=== PATIENT | male | born 1965 | race African-American/Black ===

== ENCOUNTER → 2020-07-06 | Day surgery (SDC) | payer BC ==
[~2020-07-06] MED LIST: PROPOFOL 10 MG/ML (20ML) VIAL. IV ONE
--- NOTE | 2020-07-06 13:02 | PDOC1 ---
History and Physical Date of Admission Date of Admission DATE: 07/06/20 TIME: 12:56 Identification/Chief Complaint Chief Complaint Colon cancer screening. Source Source: Patient History of Present Illness History of Present Illness 55 y/o male presents for screening colonoscopy. No prior. Denies D, C, overt bleeding except after prostate biopsies. Wt/appetite OK. No N, V. GIFH negative. Denies heartburn, dysphagia, PUD, GB, liver or pancreatic history. Past Medical History Heme/Onc: Cancer (Prostate) Past Surgical History Past Surgical History: No pertinent history Family History Family History Negative for GI issues. Social History Smoke: No ALCOHOL: occassional Drugs: None Current Medications Current Medications Current Medications Propofol (Diprivan) 200 mg STK-MED ONCE IV ; Start 07/06/20 at 12:37; Stop 07/06/20 at 12:37; Status DC Allergies Allergies: Coded Allergies: No Known Drug Allergies (Unverified , 07/06/20) ROS Review of System Otherwise negative. Physical Exam General: Alert, Oriented X3, Cooperative, No acute distress HEENT: Atraumatic Lungs: Clear to auscultation Heart: S1S2, RRR, no gallops, no murmurs Abdomen: Normal bowel sounds, Soft, No tenderness, No hepatosplenomegaly, No masses Rectal Exam: deferred (to procedure) Extremities: No cyanosis, No edema Skin: No significant lesion Neuro: Normal speech, Strength at 5/5 X4 ext, Normal tone, Sensation intact, Cranial nerves 3-12 NL, Reflexes 2+ Psych/Mental Status: Mental status NL, Mood NL Vitals Vitals Vital Signs Date Time Temp Pulse Resp B/P (MAP) Pulse Ox O2 Delivery O2 Flow Rate FiO2 07/06/20 12:19 97.4 85 20 98 97.4 Labs Labs Laboratory Tests Test 07/06/20 12:30 SARS-CoV-2 Antigen (Rapid) Negative (NEGATIVE) Laboratory Tests Test 07/06/20 12:30 SARS-CoV-2 Antigen (Rapid) Negative (NEGATIVE) VTE Prophylaxis Ordered VTE Prophylaxis Devices: No VTE Pharmacological Prophylaxi: No Assessment/Plan Assessment/Plan IMP: Average risk for colon cancer, here for screening. PLAN: colonoscopy. DEYVI ASTORGA MD July 06, 2020 13:02
--- NOTE | 2020-07-06 13:21 | PDOC4 ---
PROCEDURE Procedure Colonoscopy Indication: screening Meds: per anesthesia Findings: ONEYDA: normal --'Scope advanced to cecum. Prep adequate. Mucosa normal. No tics, polyps, etc. Small IH's on retroflex. Mary. well. IMP: Internal hemorrhoids. Normal screening exam. REC: Resume home meds, diet. Repeat exam in 10 years. F/u with us prn. DEYVI ASTORGA MD July 06, 2020 13:21
[2020-07-06 13:35] VITALS: BP 110/74
== END | disposition home or self-care (01) ==
LOC: ENDOS 12:07
PROVIDERS: ATTEND Internal Medicine Gastroenterology
DX: Z12.11 Encounter for screening for malignant neoplasm of colon (principal); K64.0 First degree hemorrhoids; K63.89 Other specified diseases of intestine; Z85.46 Personal history of malignant neoplasm of prostate; Z79.899 Other long term (current) drug therapy; Z98.890 Other specified postprocedural states; Z20.822 Contact with and (suspected) exposure to COVID-19
CPT/HCPCS: 45378; 87426; J2704